=== PATIENT | female | born 2000 | race Caucasian/White ===

== ENCOUNTER 2023-11-14 13:56 | Emergency (ER) | payer OTHER, SELFPAY ==
[2023-11-14 14:04] VITALS: BP 105/70; PULSE 106; RESP 18; TEMP 36.4; O2SAT 97; BMI 21.8
--- NOTE | 2023-11-14 14:08 | XR_ITS ---
Patient: BC GODOY Facility:?[facility] Patient ID:?[id number] Site Patient ID:?[id number]. Site :?[id number] Study:?XRay-Facial 3V NASAL BONES-11/14/2023 2:35:54 PM Ordering Physician:?DR. PRECIADO Final Report: INDICATION: Hit in face Technique: 3 views nasal bone. Findings : Paranasal sinuses appear clear without air-fluid levels or opacification. There is subtle linear lucency along the mid nasal bone suspicious for subtle fracture. Dictated by Laureen Oviedo MD @ 11/14/2023 5:10:27 PM Signed by:?Laureen Oviedo MD @11/14/2023 5:10:27 PM (Electronic Signature)
--- NOTE | 2023-11-14 14:20 | ED.GENADULT ---
HPI - General Adult General Date Seen: 11/14/23 Chief complaint: Epistaxis/Nosebleed Stated complaint: Hit in face, nose bleed, suspect broken nose Time Seen by Provider: 11/14/23 14:05 History of Present Illness HPI narrative: 22-year-old generally healthy female presents to the ER today for nasal injury and epistaxis. She was struck in the nose less than an hour prior to arrival by another player while she was playing water polo. She feels like her nose is probably broken. She was having some nose bleeding, predominantly from the left nares that has been controlled by placement of a paper towel. No other injuries. No significant headache. No LOC. No nausea vomiting. Vision normal. She does not take any blood thinners. No other injuries aside from her nose. No jaw pain or dental pain. No loss of consciousness. No headache. Vision normal. No nausea or vomiting. Related Data Home Medications Medication Instructions Recorded Confirmed mesalamine 1.2 gram tablet,delayed 4.8 g PO DAILY 11/14/23 11/14/23 release (Lialda) Allergies Allergy/AdvReac Type Severity Reaction Status Date / Time No Known Drug Allergies Allergy Verified 11/14/23 14:02 Exam Narrative: Exam Narrative: Constitutional: Appears well-developed and well-nourished. Alert. Conversant. Non toxic. HENT: Head: Atraumatic. No depressed skull fracture, Raccoon Eyes, Medina's sign, or hemotympanum. Face normal. TMs normal Nose: She does have swelling and subtle leftward deviation of the bridge of her nose. No laceration or open fracture. She has a small amount of dry blood in the left nares but no active bleeding. Septum appears normal. No septal hematoma or obvious septal deviation. Breathing normal. No sinus tenderness. Mouth/Throat: Oral mucosa is clear and moist. no trismus. Pharynx normal. Tonsils symmetric. No tonsillar enlargement, erythema, or exudate. No posterior or pharyngeal bleeding. Eyes: Conjunctivae normal. EOM normal. Pupils equal, round, and reactive to light. No scleral icterus. Neck: Normal range of motion. Neck supple. No tracheal deviation present. Cardiovascular: Normal rate, regular rhythm. No gallop. No friction rub. No murmur heard. Symmetric radial artery pulses Pulmonary/Chest: Effort normal. No stridor. No respiratory distress. No wheezes. No rales. No rhonchi . Musculoskeletal: RUE: Normal range of motion. No tenderness. No deformity LUE: Normal range of motion. No tenderness. No deformity RLE: Normal range of motion. No edema. No tenderness. No deformity LLE: Normal range of motion. No edema. No tenderness. No deformity Neurological: Alert and oriented to person, place, and time. Normal strength. CN II-VII intact. No sensory deficit. GCS eye subscore is 4. GCS verbal subscore is 5. GCS motor subscore is 6. Normal coordination Skin: Skin is warm and dry. No rash noted. No pallor. Normal capillary refill. Psychiatric: Normal mood. Normal affect. Const: Vital Signs, click to edit/add: Vital Signs - 24 hr 11/14/23 14:04 Temperature 97.6 F Pulse Rate [Pulse Oximeter] 106 H Respiratory Rate 18 Blood Pressure [Ri t Upper Arm] 105/70 Pulse Oximetry 97 Course Vital Signs Vital signs: Initial Vital Signs Temperature 97.6 F 11/14/23 14:04 Temperature Source Temporal Artery Scan 11/14/23 14:04 Pulse Rate 106 H 11/14/23 14:04 Respiratory Rate 18 11/14/23 14:04 Blood Pressure 105/70 11/14/23 14:04 Blood Pressure Mean 81 11/14/23 14:04 Pulse Oximetry 97 11/14/23 14:04 Vital Signs Temperature 97.6 F 11/14/23 14:04 Pulse Rate 106 H 11/14/23 14:04 Respiratory Rate 18 11/14/23 14:04 Blood Pressure 105/70 11/14/23 14:04 Pulse Oximetry 97 11/14/23 14:04 Temperature 97.6 F 11/14/23 14:04 Pulse Rate 106 H 11/14/23 14:04 Respiratory Rate 18 11/14/23 14:04 Blood Pressure 105/70 11/14/23 14:04 Pulse Oximetry 97 11/14/23 14:04 Medical Decision Making [facility] Narrative Medical decision making narrative: This is a very pleasant 22-year-old female who is generally healthy presenting to the ER today for than isolated trauma to her nose that occurred during a water polo game this afternoon just prior to arrival. Clinical exam and x-rays are suspicious for probable subtle left were displaced nasal bone fracture. She did have epistaxis prior to arrival that was controlled. Pain is tolerable a controlled here in the ER. She will need outpatient follow-up with ENT. Given referral for Dr. Albert Quintero in. She will call on Thursday to arrange an appointment to follow up with ENT within the next 3-5 days. Pain is controllable with [id number] medications. She is declining any meds here in the ER. Discussed fracture care with ice pack periodic LEEP. Reviewed precautions for nasal fracture, avoiding blowing her nose. Precautions for return to the ER reviewed. Questions answered. At this point this appears to be an isolated nasal fracture. No other evidence for facial bone fracture or head injury. Will hold off on maxillofacial CT at this time due to risk of radiation at her young age. No other evidence for other traumatic injury such as C-spine or thoracic or abdominal injury. Imaging Data XR nasal bones: Attestation: I have reviewed the pertinent imaging results. My impression: Subtle lucency through nasal bone suspicious for fracture. Radiologist's impression: Findings : Paranasal sinuses appear clear without air-fluid levels or opacification. There is subtle linear lucency along the mid nasal bone suspicious for subtle fracture Discharge Plan Discharge Clinical Impression: Closed fracture nasal bone Patient Disposition: Home, Self-Care Condition: Stable Instructions: Nasal Fracture (ED) Additional Instructions: As we discussed, use ibuprofen or Tylenol needed for pain control. Avoid blowing your nose because this can cause release of air under the skin of your nose and face. If you have a nose bleed, apply gentle direct pressure by pinching the soft part of the bottom of her nose together. If the bleeding has not stopped after 10 minutes of direct pressure, return to the ER. Call the ENT surgeon, Dr.O'Halloran price on Thursday at 9:00 a.m. to schedule an ER follow-up appointment. Call [phone] Activity Level: No Restrictions Discharge Diet: Regular Prescriptions: No Action mesalamine [Lialda] 1.2 gram tablet,delayed release (DR/EC) 4.8 g PO DAILY Follow Up/Referrals: Provider,Not a Local [Primary Care Provider] - Stand Alone Forms: [employer] Info Instructions
== END 2023-11-14 17:13 | disposition home or self-care (01) ==
PROVIDERS: Emergency Provider Emergency Medicine
DX: S02.2XXA Fracture of nasal bones, initial encounter for closed fracture (principal); W21.89XA Striking against or struck by other sports equipment, initial encounter; Y93.13 Activity, water polo
CPT/HCPCS: 70160; 99282; 99283

== ENCOUNTER 2023-11-20 08:42 | Day surgery (SDC) | payer OTHER, SELFPAY ==
[2023-11-20] VITALS (12 sets, daily range): BP systolic 93–103; BP diastolic 59–69; PULSE 50–78; RESP 14–16; TEMP 36.2–36.8; O2SAT 97–100; BMI 21.9
[2023-11-20 09:08] LABS: Ur HCG Qualitative* Negative (Negative)
[2023-11-20] MEDS: LACTATED RINGERS 1000 ML 1,000 ML 100 ML IV (09:33)
[2023-11-20] MEDS: SODIUM CHLORIDE 0.9 % (FLUSH) 10 ML SYRINGE IVF (09:33)
[2023-11-20] MEDS: OXYMETAZOLINE 0.05% NASAL SPRAY 2 SPRAY NOSTRIL-B (09:35)
[2023-11-20] MEDS: COCAINE HCL 4 % 4 ML SOLUTION NOSTRIL-B (10:13)
--- NOTE | 2023-11-20 10:23 | W.PM.ENTPROC ---
Procedure Note Date of procedure: 11/20/23 Procedure: Preop diagnosis depressed right lateralized left nasal fracture Postoperative diagnosis same Procedure close reduction nasal fracture Under general tracheal anesthesia patient was prepped draped usual fashion the nose on the right side decongested with cocaine pledgets. The lateralize left nasal bone was easily reduced with light digital pressure. The depressed right nasal bone was elevated with the fracture elevator. An external dressing consisting of benzoin and Steri tape was applied. The patient procedure well was taken recovery in satisfactory condition blood loss was less than 5 mL. Surgeon: Bernabe Kennedy MD
--- NOTE | 2023-11-20 10:44 | W.ANESCHARGE ---
Anesthesia Charges Start Date/Time Anesthesia Start Date: 11/20/23 Anesthesia Start Time: 10:03 Stop Date/Time Anesthesia Stop Date: 11/20/23 Anesthesia Stop Time: 10:36
--- NOTE | 2023-11-20 10:50 | W.ANESCHARGE ---
Anesthesia Charges Start Date/Time Anesthesia Start Date: 11/20/23 Anesthesia Start Time: 10:03 Stop Date/Time Anesthesia Stop Date: 11/20/23 Anesthesia Stop Time: 10:36
== END 2023-11-20 12:50 | disposition home or self-care (01) ==
PROVIDERS: Visit Provider Otolaryngology
PROC: 0NSBXZZ Reposition Nasal Bone, External Approach (ICD-10-PCS; CPT 21320; principal; 2023-11-20 10:00)
DX: S02.2XXA Fracture of nasal bones, initial encounter for closed fracture (principal)
CPT/HCPCS: 21320; 00160; 81025; A9270; J0330; J1100; J2405; J2704; J3010; J7120